=== PATIENT | female | born 1990 | race Caucasian/White ===

== ENCOUNTER 2019-05-24 05:19 | Day surgery (SDC) | payer OTHER ==
[2019-05-19 12:36] LABS: BASOPHILS # (AUTO) 0.1 K/uL (0.00-0.22); BASOPHILS % (AUTO) 0.6 % (0.0-2.0); EOSINOPHILS % (AUTO) 0.2 % (0.0-4.0); HEMATOCRIT 42.4 % (36-48); HEMOGLOBIN 14.2 g/dL (12.0-16.0); LYMPHOCYTES # (AUTO) 2.8 K/uL (2.5-16.5); LYMPHOCYTES % (AUTO) 24.9 % (20.5-51.1); MEAN CORPUSCULAR HEMOGLOBIN 30 pg (27-31); MEAN CORPUSCULAR HGB CONC 34 g/dL (33-37); MEAN CORPUSCULAR VOLUME 88.8 fL (80-94); MONOCYTES # (AUTO) 0.7 K/uL (0.8-1.0); MONOCYTES % (AUTO) 6.5 % (1.7-9.3); NEUTROPHILS # (AUTO) 7.5 K/uL (1.8-7.7); NEUTROPHILS % (AUTO) 67.8 % (42.2-75.2); PLATELET COUNT (AUTO) 297 K/uL (140-450); RED BLOOD CELL COUNT(AUTO) 4.78 MIL/uL (4.20-5.40); RED CELL DISTRIBUTION WIDTH 12.8 % (11.6-13.7); WHITE BLOOD COUNT (AUTO) 11.1 K/uL (4.8-10.8)
[2019-05-19 13:01] LABS: ALBUMIN 3.8 g/dL (3.4-5.0); ANION GAP 13.9 (8-16); CARBON DIOXIDE 27.1 mmol/L (21-32); CREATININE 0.7 mg/dL (0.6-1.3); TOTAL BILIRUBIN 0.3 mg/dL (0.0-1.0)
[~2019-05-24] VITALS: Ht 160 cm; Wt 72.6 kg
[~2019-05-24 05:19] MED LIST: ACET-8386 PO; IBUP-974 PO
[2019-05-24] MEDS ORDERED: DEXAMETHASONE 4 MG/ML VIAL ONE (07:38)
[2019-05-24] MEDS ORDERED: fentaNYL 0.05 MG/ML VIAL ONE (07:38)
[2019-05-24] MEDS ORDERED: DESFLURANE 240 ML BTL INH ONE (07:38)
[2019-05-24] MEDS ORDERED: KETOROLAC 30 MG/ML VIAL ONE (07:38)
[2019-05-24] MEDS ORDERED: SUCCINYLCHOLINE CHLORIDE 200 MG/10 ML VIAL IVP ONE (07:38)
[2019-05-24] MEDS ORDERED: PROPOFOL 200 MG/20 ML VIAL IV ONE (07:38)
[2019-05-24] MEDS ORDERED: LIDOCAINE 2% 100 MG/5 ML SYR IVP ONE (07:38)
[2019-05-24] MEDS ORDERED: ROCURONIUM 50 MG/5 ML VIAL IV ONE (07:38)
[2019-05-24] MEDS ORDERED: BUPIVACAINE-MPF 0.25% 30 ML VIAL INJ ONE (07:49)
[2019-05-24] MEDS ORDERED: MIDAZOLAM 2 MG/2 ML VIAL ONE (07:52)
[2019-05-24] MEDS ORDERED: ONDANSETRON 4 MG/2 ML VIAL IVP PRN (08:30)
[2019-05-24] MEDS ORDERED: HYDROmorphone PFS 2 MG/ML SYR ONE ×2 (09:12→09:13)
[2019-05-24] MEDS: HYDROmorphone 1 MG/ML AMP IVP PRN ×3 (09:15→09:35)
[2019-05-24] MEDS ORDERED: KETOROLAC 30 MG/ML VIAL IVP SCH (11:00)
== END 2019-05-24 11:40 | disposition home or self-care (01) ==
LOC: MDS 05:19 → MMU 06:01 → MDS 11:40
PROVIDERS: ATTEND Obstetrics & Gynecology
DX: Z30.2 Encounter for sterilization (principal)
CPT/HCPCS: 36415; 58670; 80053; 84703; 85025; J0330; J1100; J1170; J1885; J2001; J2250; J2704; J3010; J3490; J7120